=== PATIENT | female | born 1985 | race Caucasian/White ===

== ENCOUNTER 2016-09-17 09:23 | Emergency (ER) | payer OTHER ==
[~2016-09-17] VITALS: Ht 154.9 cm; Wt 60.0 kg
[2016-09-17 09:24] VITALS: BP 130/78; PULSE 66; RESP 20; TEMP 98.1; O2SAT 100
[2016-09-17] MEDS ORDERED: MORPHINE SULFATE 4 MG/ML INJ IV PUSH ONE (10:15)
[2016-09-17] MEDS ORDERED: PROPARACAINE HCL 0.5% OPHT SOLN 15 ML BTL RIGHT EYE ONE (10:15)
--- NOTE | 2016-09-17 10:17 | PD ---
HPI Chief Complaint: Eye Problems/Injury Time Seen by Provider: 09:51 Travel History International Travel<30 days: No Contact w/Intl Traveler<30days: No Traveled to known affect area: No History of Present Illness HPI This is a 31-year-old female who presents to the emergency department with severe right eye pain described as a sharp stabbing pain in her right eye, worse with movement of her eye, improved with Tylenol. The pain has been going on for 13 days. It's been constant and worsening. She saw an bran mixer yesterday who did a complete exam and was concerned that the patient may have optic neuritis. She has a history one year ago of having had an MRI with possible lesions concerning for multiple sclerosis. She denies any other numbness or weakness. She's not had any changes in her vision. [facility] Past Medical History Medical History: Denies Significant Hx Tetanus Vaccination: < 5 Years ?: Not Past Surgical History Surgical History: No Previous Surgery Social History Alcohol Use: No Tobacco Use: No Substance Use: No Allergies-Medications (Allergen,Severity, Reaction): Coded Allergies: Cipro (Verified Allergy, Severe, RASH, 09/17/16) Reported Meds & Prescriptions Reported Meds & Active Scripts Active No Active Prescriptions or Reported Medications Review of Systems Except as stated in HPI: all other systems reviewed are Neg Physical Exam Narrative GENERAL:Well appearing, no acute distress SKIN: Focused skin assessment warm and dry. HEAD: Atraumatic. Normocephalic. EYES: No conjunctival injection, some edema of the eyelid along the medial aspect of the eye, tender over the medial orbit. Pupils are equal and reactive. Extraocular movements are intact but painful. Visual acuity is 20/ 15 in both eyes. IOP is 16 in the right eye and 19 in the left eye. Fluoroscein exam is normal. ENT: Moist mucous membranes NECK: Trachea midline. CARDIOVASCULAR: Regular rate and rhythm. No murmur appreciated. RESPIRATORY: Clear to auscultation. Breath sounds equal bilaterally. GASTROINTESTINAL: Abdomen soft, non-tender, nondistended. MUSCULOSKELETAL: No obvious deformities. NEUROLOGICAL: Awake and alert. No obvious cranial nerve deficits. Moving all extremities. PSYCHIATRIC: Appropriate mood and affect; insight and judgment normal. Data Data Last Documented VS Vital Signs Date Time Temp Pulse Resp B/P Pulse Ox O2 Delivery O2 Flow Rate FiO2 09/17/16 13:52 16 09/17/16 09:24 98.1 66 130/78 100 Room Air Orders Complete Blood Count With Diff (09/17/16 10:01) Comprehensive Metabolic Panel (09/17/16 10:01) Westergren Sedimentation Rate (09/17/16 10:01) ^ Insert Iv (09/17/16 10:01) Morphine Inj (Morphine Inj) (09/17/16 10:15) Mri Brain W&W/O Contrast (09/17/16 ) Mri Orbits W&W/O Contrast (09/17/16 ) Proparacaine 0.5% Opth Soln (Alcaine 0.5 (09/17/16 10:15) Ketorolac Inj (Toradol Inj) (09/17/16 12:30) Gadodiamide Pf Inj (Omniscan Pf Inj) (09/17/16 12:56) Labs Laboratory Tests Test 09/17/16 10:20 White Blood Count 7.4 TH/MM3 Red Blood Count 4.65 MIL/MM3 Hemoglobin 11.9 GM/DL Hematocrit 37.0 % Mean Corpuscular Volume 79.7 FL Mean Corpuscular Hemoglobin 25.6 PG Mean Corpuscular Hemoglobin 32.2 % Concent Red Cell Distribution Width 14.7 % Platelet Count 244 TH/MM3 Mean Platelet Volume 9.6 FL Neutrophils (%) (Auto) 70.1 % Lymphocytes (%) (Auto) 22.8 % Monocytes (%) (Auto) 5.6 % Eosinophils (%) (Auto) 0.8 % Basophils (%) (Auto) 0.7 % Neutrophils # (Auto) 5.2 TH/MM3 Lymphocytes # (Auto) 1.7 TH/MM3 Monocytes # (Auto) 0.4 TH/MM3 Eosinophils # (Auto) 0.1 TH/MM3 Basophils # (Auto) 0.1 TH/MM3 CBC Comment DIFF FINAL Differential Comment Erythrocyte Sedimentation Rate 6 mm/hr Sodium Level 139 MEQ/L Potassium Level 3.6 MEQ/L Chloride Level 108 MEQ/L Carbon Dioxide Level 23.5 MEQ/L Anion Gap 8 MEQ/L Blood Urea Nitrogen 13 MG/DL Creatinine 0.59 MG/DL Estimat Glomerular Filtration 121 ML/MIN Rate Random Glucose 80 MG/DL Calcium Level 8.6 MG/DL Total Bilirubin 0.3 MG/DL Aspartate Amino Transf 13 U/L (AST/SGOT) Alanine Aminotransferase 19 U/L (ALT/SGPT) Alkaline Phosphatase 63 U/L Total Protein 7.4 GM/DL Albumin 3.9 GM/DL MDM Medical Decision Making Medical Screen Exam Complete: Yes Emergency Medical Condition: Yes Interpretation(s) no leukocytosis sed rate 6 electrolytes within normal limits MRI orbits: abnormal contrast enhancement and edema involving the retrobulbar fat and tenons capsule suggestive of rakesh-neuritic pseudotumor Differential Diagnosis Glaucoma, corneal abrasion, HSV keratitis, orbital cellulitis, optic neuritis Narrative Course This is a 31-year-old female who presents to the emergency department with severe right eye pain with some lid swelling along the medial aspect of her eye and severe pain with eye movements. She has normal visual acuity and no abnormal findings on the fluoroscein exam with a normal intraocular pressure. MRI was obtained which demonstrates contrast enhancement edema of the retrobulbar fat and tendons capsule suggestive of perineuritic pseudotumor. I spoke to Dr. Kimball who is on-call for ophthalmology. She agrees the patient can be managed with high-dose steroids. She agrees to follow her up in clinic. Patient will be discharged home and was asked to make an appointment with ophthalmology in one week as her steroids will likely need to be continued. Diagnosis Primary Impression: Perineuritic orbital pseudotumor, right Referrals: Mariela Kimball MD 1 week Additional Instructions: If you develop increasing pain, blurry vision, fever or swelling around her eye return to the emergency department. Follow-up with an bran mixer in one week as your steroid prescription will need to be continued and you should be reevaluated. Med/Other Pt SpecificInfo: Prescription(s) given Scripts Prednisone 50 Mg Tab50 Mg PO DAILY 7 Days Ref 0 Prov:Jessie Lorenzana MD 09/17/16 Tramadol 50 Mg Tab50 Mg PO Q6H PRN (PAIN) #15 TAB Prov:Jessie Lorenzana MD 09/17/16 Disposition: 01 DISCHARGE HOME Condition: Stable Jessie Lorenzana MD Sep 17, 2016 10:17
[2016-09-17 11:02] LABS: AUTOMATED NEUTROPHIL # 5.2 TH/MM3 (1.8-7.7); BASOPHIL # 0.1 TH/MM3 (0-0.2); BASOPHIL % 0.7 % (0.0-2.0); EOSINOPHIL # 0.1 TH/MM3 (0-0.4); EOSINOPHIL % 0.8 % (0.0-4.0); HEMO FLAGS DIFF FINAL; LYMPH % 22.8 % (9.0-44.0); LYMPHOCYTE # 1.7 TH/MM3 (1.0-4.8); MEAN CELL VOLUME 79.7 FL (80.0-100.0); MEAN CORPUSCULAR HEMOGLOBIN 25.6 PG (27.0-34.0); MEAN CORPUSCULAR HGB CONC 32.2 % (32.0-36.0); MONO % 5.6 % (0.0-8.0); NEUT % 70.1 % (16.0-70.0); PLATELET COUNT 244 TH/MM3 (150-450); RED BLOOD COUNT 4.65 MIL/MM3 (4.00-5.30); RED CELL DISTRIBUTION WIDTH 14.7 % (11.6-17.2); WHITE BLOOD COUNT 7.4 TH/MM3 (4.0-11.0)
[2016-09-17 11:27] LABS: ALT (GPT) 19 U/L (10-53); ANION GAP 8 MEQ/L (5-15); AST (GOT) 13 U/L (15-37); BICARBONATE 23.5 MEQ/L (21.0-32.0); BLOOD UREA NITROGEN 13 MG/DL (7-18); CHLORIDE 108 MEQ/L (98-107); GLOMERULAR FILTRATION RATE 121 ML/MIN (>89); POTASSIUM 3.6 MEQ/L (3.5-5.1); SODIUM (NA) 139 MEQ/L (136-145)
[2016-09-17 11:30] LABS: ALKALINE PHOSPHATASE 63 U/L (45-117); TOTAL BILIRUBIN ADULT 0.3 MG/DL (0.2-1.0)
[2016-09-17] MEDS ORDERED: KETOROLAC TROMETHAMINE 30 MG/ML (IVP) VIAL IV PUSH ONE (12:30)
[2016-09-17] MEDS ORDERED: GADODIAMIDE PF 287 MG/ML 5 ML VIAL (for RAD MRI) IV ONE (12:56)
--- NOTE | 2016-09-17 13:41 | RADRPT ---
EXAM DATE/TIME: 09/17/2016 12:25 [facility] COMPARISON: No previous studies available for comparison. INDICATIONS : Nerve disorder. Right eye pain. CONTRAST: 12 cc Omniscan (gadodiamide) IV MEDICAL HISTORY : Multiple sclerosis. SURGICAL HISTORY : None. ENCOUNTER: Initial ACUITY: 1 day PAIN SCORE: 3/10 LOCATION: Right Eye. TECHNIQUE: Multiplanar, multisequence MRI examination was performed. FINDINGS: Problem specific findings: Postcontrast T1 weighted images demonstrate abnormal contrast enhancement involving the retro bulbar fat adjacent to the optic nerve. I do not see definite enhancement or edema within the substance of t he optic nerve itself. The examination does demonstrate some enhancement along the posterior and supe rior aspect of the globe itself and ED in the within Tenon's capsule. There does not appear to be inv olvement of the extraocular muscles. The lacrimal gland is intact. Primary consideration would be a p antony-neuritic pseudotumor. Detailed funduscopic examination and ophthalmologic consult is warranted fo r further assessment. If symptoms persist, followup MRI would be warranted. No definite findings to s uggest ophthalmic vein thromboses are evident by this MRI. MRI source data: The visualized portion of brain parenchyma is unremarkable. The left orbit is intact. The visualized sinuses are clear. MRI of the brain is pending. CONCLUSION: Abnormal contrast-enhancement and edema involving the retrobulbar fat and tenons capsule. No definite enhancement or edema within the substance of the right optic nerve itself is identified. Primary dif ferential considerations would be rakesh-neuritic pseudotumor. Please see above discussion. Jesus Saravia MD on September 17, 2016 at 13:27 Board Certified Radiologist. This report was verified electronically.
[2016-09-17 13:52] VITALS: RESP 16
--- NOTE | 2016-09-17 14:11 | RADRPT ---
EXAM DATE/TIME: 09/17/2016 12:25 [facility] COMPARISON: No previous studies available for comparison. INDICATIONS : Multiple sclerosis. CONTRAST: 12 cc Omniscan (gadodiamide) IV MEDICAL HISTORY : Multiple sclerosis. SURGICAL HISTORY : None. ENCOUNTER: Initial ACUITY: 1 day PAIN SCORE: 0/10 LOCATION: Head. TECHNIQUE: Multiplanar, multisequence MRI of the brain was performed both prior to and following the administrat ion of paramagnetic contrast. FINDINGS: CEREBRUM: The ventricles are normal for age. No evidence of midline shift, mass lesion, hemorrhage or acute in farction. No extraaxial fluid collections are seen. The pituitary gland and suprasellar cistern are normal in configuration. WHITE MATTER: No significant signal abnormalities are seen in the white matter. POSTERIOR FOSSA: The cerebellum and brainstem are intact. The 4th ventricle is midline. The cerebellopontine angle is unremarkable. The cerebellar tonsils are normal in position. DIFFUSION IMAGING: No focal areas of restricted diffusion are seen. No evidence of acute infarction. EXTRACRANIAL: The visualized portions of the orbits and paranasal sinuses are unremarkable. POST-CONTRAST: No abnormal areas of parenchymal or dural enhancement. No evidence of blood-brain barrier breakdown. CONCLUSION: 1. No findings to indicate multiple sclerosis are seen within the brain parenchyma. 2. Examination is within normal limits. Jesus Saravia MD on September 17, 2016 at 14:05 Board Certified Radiologist. This report was verified electronically.
[2016-09-17] MEDS ORDERED: PRED50 PO (14:37)
[2016-09-17] MEDS ORDERED: TRAM50TA PO (14:37)
[2016-09-17 14:40] VITALS: BP 99/59
[2016-09-17] MEDS ORDERED: methylPREDNISolone SOD SUCC 125 MG/2 ML VIAL IV PUSH ONE (14:45)
== END 2016-09-17 15:05 | disposition home or self-care (01) ==
LOC: NEPD 09:23
DX: H05.111 Granuloma of right orbit (principal)
CPT/HCPCS: 70543; 70553; 80053; 85025; 85652; 96374; 96375; 99285; A9579; J1885; J2270; J2930